=== PATIENT | female | born 1990 | race Caucasian/White ===

== ENCOUNTER 2016-11-22 16:34 | Outpatient (CLI) | payer OTHER, BC ==
--- NOTE | 2016-11-22 17:46 | DIAGNOSTIC IMAGING REPORT ---
PROCEDURE: US OB 1ST TRIMESTER W/TRANSVAG INDICATION: CHECK VIABILITY, initial encounter TECHNIQUE: Jackson scale, color, and spectral Doppler transabdominal and endovaginal sonographic images of the first trimester gravid uterus were obtained. COMPARISON: None. FINDINGS: TRANSABDOMINAL SCANS: Retroverted uterus with single anterior and gestational sac. Normal kidneys. TRANSVAGINAL SCANS: Yolk sac present. [place]-rump length 8.3 mm, 6 weeks 6 days. KEL 07/12/2017. Heart rate 132 bpm. Right ovarian corpus luteum cyst. Small amount of free fluid in the cul-de-sac. IMPRESSION: 1. Single live intrauterine 6 weeks 6 days 2. KEL 07/12/2017
--- NOTE | 2016-11-22 17:46 | DIAGNOSTIC IMAGING REPORT ---
PROCEDURE: US OB 1ST TRIMESTER W/TRANSVAG INDICATION: CHECK VIABILITY, initial encounter TECHNIQUE: Jackson scale, color, and spectral Doppler transabdominal and endovaginal sonographic images of the first trimester gravid uterus were obtained. COMPARISON: None. FINDINGS: TRANSABDOMINAL SCANS: Retroverted uterus with single anterior and gestational sac. Normal kidneys. TRANSVAGINAL SCANS: Yolk sac present. [place]-rump length 8.3 mm, 6 weeks 6 days. KEL 07/12/2017. Heart rate 132 bpm. Right ovarian corpus luteum cyst. Small amount of free fluid in the cul-de-sac. IMPRESSION: 1. Single live intrauterine 6 weeks 6 days 2. KEL 07/12/2017
== END 2016-11-22 23:00 ==
LOC: US SRH 16:34
DX: Z34.91 Encounter for supervision of normal pregnancy, unspecified, first trimester (principal); Z3A.01 Less than 8 weeks gestation of pregnancy
CPT/HCPCS: 90001; 90074; 90155; 90197; 91004

== ENCOUNTER 2017-02-16 08:53 | Outpatient (CLI) | payer BC ==
--- NOTE | 2017-02-16 09:53 | DIAGNOSTIC IMAGING REPORT ---
PROCEDURE: US OB DETAILED ANATOMIC INDICATION: ANATOMY TECHNIQUE: Jackson scale, color, and spectral Doppler images of the second trimester gravid uterus were obtained. COMPARISON: OB ultrasound 11/22/2016 FINDINGS: A single living intrauterine is in variable presentation. There is regular cardiac activity at a rate of 144 beats per minute. The placenta is anterior and away from the internal cervical os. The cervix is closed measuring approximately 5.6 cm in length. The amniotic fluid volume is subjectively normal. Biparietal diameter 4.5 cm of 19 weeks and 3-day Head circumference 16.6 cm of 19 weeks and 2 days Abdominal circumference 14 point centimeters at 20 weeks and 1 day Femur length 3.2 cm of 19 weeks and 6 days Head to abdominal circumference ratio and femur length to abdominal circumference ratios are normal. Estimated weight 321 g Composite gestational age 19 weeks and 5 days, KEL 07/08/2017 There was visualization of a number of normal structures including the intracranial contents, facial features, nuchal region, spine, four-chamber heart and outflow tracts to the extent that could be visualized, diaphragm, fluid-filled stomach, kidneys, abdomen, urinary bladder, upper and lower extremities, and genitals. A three-vessel umbilical cord, normal and placental cord insertion sites were seen. IMPRESSION: 1. Single living intrauterine with a composite gestational age of 19 weeks and 5 days, KEL 07/08/2017 2. Symmetric and normal anatomy.
== END 2017-02-16 23:00 ==
LOC: US SRH 08:53
DX: Z34.92 Encounter for supervision of normal pregnancy, unspecified, second trimester (principal); Z3A.19 19 weeks gestation of pregnancy

== ENCOUNTER → 2017-04-20 | Outpatient (CLI) | payer BC | LOC: LAB SRH 10:45 | DX: Z34.82 Encounter for supervision of other normal pregnancy, second trimester (principal) | CPT/HCPCS: 90039; 90074; 91162; 91163 ==